=== PATIENT | male | born 1955 | race Caucasian/White ===

== ENCOUNTER 2019-04-08 07:56 | Day surgery (SDC) | payer OTHER, BC ==
[2019-04-08] MEDS ORDERED: LIDOCAINE 4% SOLUTION 50 ML BTL (09:09)
[2019-04-08] MEDS ORDERED: MIDAZOLAM 1 MG/ML 2 ML INJ (09:12)
[2019-04-08] MEDS ORDERED: LIDOCAINE 2% (SDV) 5 ML INJ (09:12)
[2019-04-08] MEDS ORDERED: PROPOFOL 40 ML (09:12)
[2019-04-08] MEDS ORDERED: FENTAnyl 50 MCG/ML VIAL IV (10:30)
== END 2019-04-08 15:54 | disposition home or self-care (01) ==
LOC: GIL 07:56
DX: Z12.11 Encounter for screening for malignant neoplasm of colon (principal); K64.9 Unspecified hemorrhoids; D12.4 Benign neoplasm of descending colon; K20.8 Other esophagitis; K29.81 Duodenitis with bleeding; I10 Essential (primary) hypertension; E11.9 Type 2 diabetes mellitus without complications; Z79.84 Long term (current) use of oral hypoglycemic drugs
CPT/HCPCS: 43239; 82962; 88305; 88312; 88313